=== PATIENT | female | born 1945 | race Caucasian/White ===

== ENCOUNTER 2018-07-31 17:57 | Emergency (ER) | payer OTHER, MEDICARE ==
[~2018-07-31] VITALS: Ht 170.2 cm; Wt 68.9 kg
[2018-07-31 18:00] VITALS: BP_SYST 124
--- NOTE | 2018-07-31 18:00 | NUR ---
Patient to ER bed 1 to gown for evaluation. Side rails up. Assumed care.
--- NOTE | 2018-07-31 18:09 | NUR ---
Patient came in by BLS for anxiety. Patient had argument with daughter and got upset. Patient complaints of dizziness, nausea, and vomiting. Patient has history of hypertension and right breast CA. Patient actively nauseated and vomiting with family at bedside. Will continue to follow up and monitor.
[2018-07-31] MEDS ORDERED: ONDANSETRON HCL 4 MG/2 ML VIAL IVP ONE ×2 (18:15→19:15)
--- NOTE | 2018-07-31 18:15 | NUR ---
ER at bedside examining patient.
--- NOTE | 2018-07-31 18:34 | NUR ---
Patient given zofran for nausea relief. Daughter at bedside, patient tolerated well.
[2018-07-31] MEDS ORDERED: NACL 0.9% 1,000 ML IV ONE (19:15)
[2018-07-31] MEDS ORDERED: TOPXL100 PO (19:20)
[2018-07-31] MEDS ORDERED: LEVO75TA7 PO (19:20)
[2018-07-31] MEDS ORDERED: IRBE150T26 PO (19:20)
--- NOTE | 2018-07-31 19:20 | NUR ---
Medication reconciliation completed with information provided by patient. Any prior medication reconciliation on file was reviewed and corrected.
[2018-07-31 19:52] LABS: HEMATOCRIT 38.5 % (36-48); HEMOGLOBIN 12.8 g/dL (12.0-16.0); MEAN CORPUSCULAR HEMOGLOBIN 32 pg (27-31); MEAN CORPUSCULAR HGB CONC 33 % (32-36); MEAN CORPUSCULAR VOLUME 96 fL (79.0-98.0); PLATELET COUNT (AUTO) 189 K/uL (130-430); RED BLOOD CELL COUNT(AUTO) 4.01 MIL/uL (4.2-6.2); RED CELL DISTRIBUTION WIDTH 12.3 % (9.0-15.0); WHITE BLOOD COUNT (AUTO) 8.6 K/uL (4.8-10.8)
[2018-07-31 20:00] LABS: CALCIUM 9.6 mg/dL (8.4-11.0); CREATININE 0.84 mg/dL (0.55-1.30); POTASSIUM 3.7 mmol/L (3.5-5.1); TOTAL BILIRUBIN 0.2 mg/dL (0.0-1.0)
--- NOTE | 2018-07-31 20:00 | NUR ---
IVF infusing with no s/s of infiltration at this time. Will cont to monitor.
[2018-07-31] MEDS ORDERED: MECLIZINE HCL 25 MG TABLET (ANITVERT) PO ONE (20:15)
--- NOTE | 2018-07-31 20:40 | NUR ---
No adverse reactions noted after medication administration. Will continue to monitor.
[2018-07-31 21:21] LABS: BAND % (MANUAL) 0 % (0-6); BASOPHILS % (MANUAL) 0 % (0-2); EOSINOPHILS % (MANUAL) 1 % (0-7); LYMPHOCYTES % (MANUAL) 47 % (20-46); MONOCYTES % (MANUAL) 2 % (0-11)
[2018-07-31 22:15] VITALS: BP_SYST 132
--- NOTE | 2018-07-31 22:15 | NUR ---
Patient given written and verbal discharge instructions and verbalizes understanding. ER MD discussed with patient the results and treatment provided. Patient in stable condition. ID arm band removed. IV catheter removed intact and dressing applied, no active bleeding. Rx of Antivert given. Patient educated on pain management and to follow up with PMD. Pain Scale 0/10 tolerable to patient. Opportunity for questions provided and answered. Medication side effect fact sheet provided.
== END 2018-07-31 22:15 | disposition home or self-care (01) ==
LOC: SED 17:57
DX: H81.10 Benign paroxysmal vertigo, unspecified ear (principal); I10 Essential (primary) hypertension; Z98.890 Other specified postprocedural states; Z88.1 Allergy status to other antibiotic agents
CPT/HCPCS: 36415; 80053; 84484; 85007; 85027; 93005; 96361; 96374; 96376; 99285; J2405; J7030; J8597